=== PATIENT | male | born 2005 | race Caucasian/White ===

== ENCOUNTER → 2023-08-04 06:14 | Outpatient (REF) | payer BC, SELFPAY | LOC: EMG 06:14 | PROVIDERS: ATTENDING PHYSICIAN Physician Assistant Medical | DX: R29.898 Other symptoms and signs involving the musculoskeletal system (principal); R20.0 Anesthesia of skin | CPT/HCPCS: 36415; 72050; 80053; 80061; 84443; 85025; 95886; 95909 ==

== ENCOUNTER → 2023-08-23 10:16 | Outpatient (REF) | payer BC, SELFPAY ==
[2023-08-23 13:36] LABS: ALT (SGPT) 36 U/L (0-50); AST (SGOT) 41 U/L (17-59); Albumin 4.7 g/dl (3.5-5.0); Alkaline Phosphatase 55 U/L (38-126); Blood Urea Nitrogen 16 mg/dl (9-20); Calcium 9.8 mg/dl (8.4-10.2); Carbon Dioxide 33 mmol/L (22-30); Chloride 99 mmol/L (98-107); Glucose 88 mg/dl (70-99); Potassium 4.9 mmol/L (3.5-5.1); Sodium 140 mmol/L (135-145); Total Bilirubin 0.9 mg/dl (0.2-1.3); Total Protein 7.7 g/dl (6.3-8.2); eGFR > 60.00
== END ==
LOC: REG 10:16
PROVIDERS: ATTENDING PHYSICIAN Physician Assistant Medical
DX: R74.8 Abnormal levels of other serum enzymes (principal)
CPT/HCPCS: 36415; 80053